=== PATIENT | male | born 1960 | race Caucasian/White ===

== ENCOUNTER 2017-08-31 08:28 | Emergency (ER) | payer OTHER ==
[2017-08-31 08:37] VITALS: TEMP 98.7; BMI 26.6
--- NOTE | 2017-08-31 08:53 | PDOC ---
History of Present Illness - General Chief Complaint: Pain Stated Complaint: ABD PAIN/EPIGASTRIC PAIN Time Seen by Provider: 08/31/17 08:44 - History of Present Illness Initial Comments: 08/31/17 09:47 The patient is a 57 year old male with a history of HTN, DM, Liver Cirrhosis who presents for evaluation of abdominal pain. The patient reports a 3 day history of severe burning epigastric abdominal pain worse with lying down. He states that the pain was somewhat relieved with zantac, but reported worsening symptoms today prompting his presentation to the ED for evaluation. He reports some nausea, but otherwise denies fevers, chills, SOB, chest pain, vomiting, or changes with urination or bowel movements. Past History - Past Medical History Allergies/Adverse Reactions: Allergies Allergy/AdvReac Type Severity Reaction Status Date / Time shellfish derived Allergy Verified 08/31/17 08:32 Home Medications: Ambulatory Orders Linagliptin [Tradjenta] 5 mg PO DAILY 08/31/17 Lisinopril [Zestril] 10 mg PO DAILY 08/31/17 Pantoprazole Sodium [Protonix -] 40 mg PO DAILY #30 tablet.ec 08/31/17 COPD: No DVT: No Diabetes: Yes HTN: Yes Liver Disease: Yes (Hep C, LIVER CIRRHOSIS) - Immunization History Immunization Up to Date: Yes - Suicide/Smoking/Psychosocial Hx Smoking History: Never smoked Have you smoked in the past 12 months: No Information on smoking cessation initiated: No Hx Alcohol Use: No Drug/Substance Use Hx: No Substance Use Type: None Review of Systems - Review of Systems Comments:: 08/31/17 09:54 Constitutional: No fevers, chills, fatigue, malaise HEENT: No Rhinorrhea, nasal congestion, visual changes Cardiovascular: No chest pain, syncope, palpitations, lightheadedness Respiratory: No Cough, SOB, Hemoptysis, Gastrointestinal: Abdominal pain, nausea. No Vomiting, Constipation, Diarrhea, Melena Genitourinary: No Dysuria, Frequency, Urgency, Hesitancy, Hematuria, Flank pain Musculoskeletal: No Myalgia, arthralgia Skin: No rashes, itching, bruising, pallor Neurologic: No Headache, Dizziness, Numbness, Weakness, or Tingling Psychiatric: No Hallucinations. No SI or HI *Physical Exam - Vital Signs Last Vital Signs Temp Pulse Resp BP Pulse Ox 98.7 F 57 L 18 123/74 100 08/31/17 08:34 08/31/17 08:34 08/31/17 08:34 08/31/17 08:34 08/31/17 08:34 - Physical Exam Comments: 08/31/17 09:55 General Appearance: Nourished. No Apparent Distress HEENT: EOMI, HERB. No Pharyngeal Erythema, Tonsillar Exudate, Tonsillar Erythema Neck: No Cervical Lymphadenopathy Respiratory/Chest: Lungs Clear, Normal Breath Sounds. No Crackles, Rales, Rhonchi, Wheezing Cardiovascular: Regular Rhythm, Regular Rate. No Murmur, Gallops, Rubs Gastrointestinal/Abdominal: Normal Bowel Sounds, Soft. Epigastric tenderness to palpation on exam. No Guarding, Rebound, Musculoskeletal: No CVA Tenderness Extremity: Normal Capillary Refill Integumentary: Normal Color, Dry, Warm Neurologic: Fully Oriented, Alert, Normal Mood/Affect, Normal Response, ED Treatment Course - LABORATORY CBC & Chemistry Diagram: 08/31/17 09:00 08/31/17 09:00 Medical Decision Making - Medical Decision Making 08/31/17 09:56 The patient is a 57 year old male with a history of HTN, DM, Liver Cirrhosis who presents for evaluation of abdominal pain. Differential includes but is not limited to: ACS, GERD, Gastritis, Cholecystitis, infectious, metabolic derangement. Given the patient's history and physical exam, it is likely the patient's symptoms are due to a gastritis or GERD. However, we will obtain a cbc, cmp, troponin, lipase, ekg, and gallbladder US to evaluate further for possible etiologies. We will treat with iv fluids, pepcid, zofran, maalox in the meantime. We will continue to monitor and reassess. 08/31/17 13:06 CBC, cmp, troponin, lipase are unremarkable. Gallbladder US is unremarkable as read by our radiologist. We are comfortable discharging the patient home at this time with GI follow up. We discussed the results, plan and strict return precautions with the patient who voiced understanding and is agreeable with the plan. *DC/Admit/Observation/Transfer Diagnosis at time of Disposition: Gastritis Qualifiers: Chronicity: unspecified Gastritis bleeding: presence of bleeding unspecified Abdominal pain Qualifiers: Abdominal location: unspecified location Qualified Code(s): R10.9 - Unspecified abdominal pain - Discharge Dispostion Disposition: HOME Condition at time of disposition: Good Admit: No - Prescriptions Prescriptions: Pantoprazole Sodium [Protonix -] 40 mg PO DAILY #30 tablet.ec - Referrals Referrals: Toñito Brunson [facility] [Primary Care Provider] - - Patient Instructions Printed Discharge Instructions: DI for Gastritis, DI for Peptic Ulcer Additional Instructions: Please return to the ER if you experience concerning or worsening symptoms including worsening abdominal pain, vomiting, or fevers. Your lab results were normal here in the ER. Your ultrasound was normal as well. It is possible your symptoms are due to an ulcer. We have sent a prescription to your pharmacy to help manage your symptoms and you should take as directed. It is extremely important that you call to schedule a follow up appointment with our GI specialist Dr. Mclaughlin within 2-3 days to discuss your ER visit and further management of your symptoms. - Post Discharge Activity
[2017-08-31] MEDS ORDERED: SODIUM CHLORIDE 1,000 ML IV STA (08:54)
[2017-08-31] MEDS ORDERED: MAG HYDROX/AL HYDROX/SIMETH -MYLANTA- ORAL SUSPENSION PO ONE (08:54)
[2017-08-31] MEDS ORDERED: FAMOTIDINE 20 MG/50 ML IVPB 20 MG/50 ML MG IVPB ONE ×2 (08:54→09:10)
[2017-08-31] MEDS ORDERED: ONDANSETRON 4 MG/2 ML VIAL IVPUSH ONE (08:54)
[2017-08-31] MEDS ORDERED: MAG HYDROX/AL HYDROX/SIMETH 30 ML UNIT-DOSE CUP ONE (09:10)
[2017-08-31] MEDS ORDERED: ONDANSETRON 4 MG/2 ML VIAL ONE (09:10)
[2017-08-31 09:11] LABS: BASO % 0.2 % (0-2.0); EOS % 1.8 % (0-4.5); HEMATOCRIT 42.7 % (35.4-49); LYMPH % 28.2 % (8-40); MCHC 35.1 g/dl (32.0-35.9); MEAN CELL VOLUME 85.4 fl (80-96); MONO % 7.8 % (3.8-10.2); PLATELET COUNT 94 K/MM3 (134-434); RDW 13.2 % (11.9-15.9); WHITE BLOOD COUNT 6.7 K/mm3 (4.0-10.0)
[2017-08-31 09:28] LABS: URINE APPEARANCE CLEAR; URINE BILIRUBIN NEGATIVE (<2.0 mg/dL); URINE COLOR LTYELLOW; URINE GLUCOSE (UA) NEGATIVE (NEGATIVE); URINE KETONE NEGATIVE (NEGATIVE); URINE LEUK ESTERASE NEGATIVE (NEGATIVE); URINE NITRITE NEGATIVE (NEGATIVE); URINE PROTEIN NEGATIVE (NEGATIVE); URINE UROBILINOGEN NEGATIVE mg/dL (0.2-1.0)
[2017-08-31 09:38] LABS: ALK PHOS 54 U/L (45-117); ANION GAP 5 (8-16); BLOOD UREA NITROGEN 11 mg/dL (7-18); CALCIUM 8.1 mg/dL (8.5-10.1); CHLORIDE 108 mmol/L (98-107); CO2 27 mmol/L (21-32); CREATININE 0.7 mg/dL (0.7-1.3); GLUCOSE,RANDOM 136 mg/dL (74-106); POTASSIUM 4.1 mmol/L (3.5-5.1); SGOT/AST 17 U/L (15-37); SGPT/ALT 20 U/L (12-78); SODIUM 140 mmol/L (136-145); TOT PROT 7.3 g/dl (6.4-8.2)
[2017-08-31 09:44] LABS: BILIRUBIN,TOTAL 0.9 mg/dL (0.2-1.0)
[2017-08-31 09:45] LABS: LIPASE 325 U/L (73-393)
--- NOTE | 2017-08-31 09:49 | PDOC ---
Attending Attestation - HPI HPI: 08/31/17 10:35 The patient is a 57 year old male with a significant PMH of liver cirrhosis, hepatitis, HTN, and diabetes who presents to the emergency department with epigastric pain beginning approximately 3 days ago. He describes his epigastric pain as an intermittent burning sensation with associated nausea that is aggravated by lying down. The patient denies chest pain or shortness of breath. He denies fevers or chills. He denies vomiting or diarrhea. Allergies: NKDA PCP: Dr. Brunson - Physicial Exam PE: 08/31/17 10:35 Vitals: Triage Vital signs reviewed General Appearance: no acute distress, well nourished well developed, Cardiac: Regular rate and rhythm, no murmurs, no rubs, no gallops, Lungs: Clear to auscultation bilateral, good air movement bilaterally, Abdomen: (+) Epigastric tenderness. Soft, nondistended, normal bowel sounds. Extremities: Full range of motion to all extremities, no cyanosis, clubbing, or edema Skin: Warm and dry, no rashes or lesions, no petechiae Neuro: AOX3; Cranial Nerves 2-12 grossly intact, Strength intact to all extremities, Sensation intact to all extremities Psych: normal mood, normal affect <Anurag Ley - Last Filed: 08/31/17 10:35> - Resident Resident Name: Hung Lema - ED Attending Attestation I have performed the following: I have examined & evaluated the patient, The case was reviewed & discussed with the resident, I agree w/resident's findings & plan, Exceptions are as noted - Medical Decision Making 08/31/17 10:27 57 years old past medical history significant for hepatitis C hypertension, diabetes presents with several day history of epigastric burning worse with meals Patient's last endoscopy was 2 years ago. Denies chest pain shortness of breath. History examination most consistent with GI etiology. We'll check labs GI cocktail ultrasound however given age and location of discomfort we'll also check EKG troponin observe and reassess. Reevaluation: Nonischemic EKG and troponin negative labs within normal limits, heart score 3. Based solely on past medical history Pain improving with GI medications. 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 <Pilo Graham - Last Filed: 08/31/17 16:28> Heart Score/ECG Review - ECG Impressions Comment:: 08/31/17 10:26 EKG performed at 9:23 AM. Demonstrates sinus rhythm 52 bpm MA interval 158, QRS 88, QTC 399. No ST elevations isolated T-wave inversion with incomplete right bundle branch block in lead 3 Interpreted by me. <Pilo Graham - Last Filed: 08/31/17 16:28>
[2017-08-31] MEDS ORDERED: METOCLOPRAMIDE HCL INJECTION 10 MG/2 ML VIAL IVPB ONE (11:58)
--- NOTE | 2017-08-31 12:09 | EKG ---
Test Reason : Blood Pressure : / mmHG Vent. Rate : 055 BPM Atrial Rate : 055 BPM P-R Int : 146 ms QRS Dur : 090 ms QT Int : 406 ms P-R-T Axes : 041 -07 011 degrees QTc Int : 388 ms SINUS BRADYCARDIA OTHERWISE NORMAL ECG WHEN COMPARED WITH ECG OF 14-FEB-2010 17:56, NO SIGNIFICANT CHANGE WAS FOUND Confirmed by VIKY TIPTON MD ([id number]) on 08/31/2017 12:08:40 PM Referred By: Confirmed By:VIKY TIPTON MD
[2017-08-31] MEDS ORDERED: METOCLOPRAMIDE HCL INJECTION 10 MG/2 ML VIAL ONE (12:12)
[2017-08-31 13:04] VITALS: BP 132/74; PULSE 78
--- NOTE | 2017-09-02 10:36 | EKG ---
Test Reason : Blood Pressure : / mmHG Vent. Rate : 052 BPM Atrial Rate : 052 BPM P-R Int : 158 ms QRS Dur : 088 ms QT Int : 430 ms P-R-T Axes : 040 005 012 degrees QTc Int : 399 ms SINUS BRADYCARDIA OTHERWISE NORMAL ECG WHEN COMPARED WITH ECG OF 31-AUG-2017 08:38, NO SIGNIFICANT CHANGE WAS FOUND Confirmed by CHAVA PADRON MD ([id number]) on 09/02/2017 10:35:57 AM Referred By: Confirmed By:CHAVA PADRON MD
== END 2017-08-31 13:05 | disposition home or self-care (01) ==
LOC: JER 08:28
PROC: 3E033GC Introduction of Other Therapeutic Substance into Peripheral Vein, Percutaneous Approach (ICD-10-PCS; principal; 2017-08-31)
PROC: 3E0337Z Introduction of Electrolytic and Water Balance Substance into Peripheral Vein, Percutaneous Approach (ICD-10-PCS; 2017-08-31)
DX: R10.9 Unspecified abdominal pain (principal); I10 Essential (primary) hypertension; E11.9 Type 2 diabetes mellitus without complications; K74.60 Unspecified cirrhosis of liver
CPT/HCPCS: 36415; 76705-TC; 80053; 81003; 82550; 83690; 84484; 85025; 93005; 93010; 96361; 96365; 96375; 99283-25; J7030